=== PATIENT | female | born 1970 ===

== ENCOUNTER 2022-08-28 12:00 | Inpatient (IN) | payer OTHER ==
[~2022-08-28] VITALS: Ht 157.5 cm; Wt 58.5 kg
[2022-08-28] MEDS ORDERED: NORVASC2.5 M1 PO (16:51)
[2022-08-28] MEDS ORDERED: CARVEDILOL6.25 MG (16:51)
[2022-08-28] MEDS ORDERED: KEPPRA500 MG PO (16:51)
[2022-08-28] MEDS ORDERED: IBRANCE75 MG PO (16:52)
[2022-08-28] MEDS ORDERED: FEMARA2.5 MG PO (16:52)
[2022-08-30] MEDS ORDERED: IBRANCE125 MG (10:44)
[2022-08-30] MEDS ORDERED: LETROZOLE2.5 MG (10:44)
== END 2022-08-31 11:41 | disposition home or self-care (01) | DRG 743 ==
LOC: O/R 08-30 09:35 → SURH 08-30 12:00 → OB/GYN 08-30 17:49 → SURH 08-30 23:45 → OB/GYN 08-31 11:41
PROVIDERS: ADMIT Obstetrics & Gynecology Gynecologic Oncology; ATTEND Obstetrics & Gynecology Gynecologic Oncology
PROC: 0UT74ZZ Resection of Bilateral Fallopian Tubes, Percutaneous Endoscopic Approach (ICD-10-PCS; 2022-08-30)
PROC: 0UT24ZZ Resection of Bilateral Ovaries, Percutaneous Endoscopic Approach (ICD-10-PCS; 2022-08-30)
PROC: 07BC4ZZ Excision of Pelvis Lymphatic, Percutaneous Endoscopic Approach (ICD-10-PCS; 2022-08-30)
PROC: 0UT94ZZ Resection of Uterus, Percutaneous Endoscopic Approach (ICD-10-PCS; principal; 2022-08-30 23:45)
DX: D27.0 Benign neoplasm of right ovary (principal); Z20.822 Contact with and (suspected) exposure to COVID-19